=== PATIENT | male | born 1965 | race Caucasian/White ===

== ENCOUNTER 2020-06-01 03:11 | Emergency (ER) | payer MEDICAID ==
[~2020-06-01] VITALS: Ht 182.9 cm; Wt 110.0 kg
[~2020-06-01 03:11] MED LIST: NAPR-56 PO
[2020-06-01] MEDS ORDERED: proparacaine 0.5% ophthalmic drops 15ml EACHEYE ONE (03:55)
--- NOTE | 2020-06-01 04:10 | NUR ---
Dr. Villalobos examining pt's eye
[2020-06-01] MEDS ORDERED: HYDR-3965 PO (04:23)
[2020-06-01] MEDS ORDERED: sod sulfacetamide/prednisoLONE ophth susp 5ml EACHEYE SCH (04:25)
[2020-06-01] MEDS ORDERED: TETanus/Pertussis (Acell)/Diphther VAC/PF (Tdap-Adult) 0.5ml syringe IMVAC ONE (04:25)
[2020-06-01 05:18] VITALS: BP 143/112
== END 2020-06-01 05:22 | disposition home or self-care (01) ==
LOC: ER 03:12
DX: H57.11 Ocular pain, right eye (principal); F15.90 Other stimulant use, unspecified, uncomplicated; Z98.890 Other specified postprocedural states; Z79.899 Other long term (current) drug therapy
CPT/HCPCS: 90471; 90715; 99283

== ENCOUNTER 2020-06-01 14:08 | Emergency (ER) | payer MEDICAID ==
[~2020-06-01] VITALS: Ht 182.9 cm; Wt 106.2 kg
[~2020-06-01 14:08] MED LIST changes: +HYDR-3965 PO
[2020-06-01 14:12] VITALS: BP 170/100
== END 2020-06-01 15:38 | disposition home or self-care (01) ==
LOC: ER 14:08
DX: H10.89 Other conjunctivitis (principal); H57.11 Ocular pain, right eye; F15.90 Other stimulant use, unspecified, uncomplicated; Z98.890 Other specified postprocedural states; Z79.899 Other long term (current) drug therapy
CPT/HCPCS: 99281

== ENCOUNTER 2022-01-15 22:37 | Emergency (ER) | payer MEDICAID ==
[~2022-01-15] VITALS: Ht 182.9 cm; Wt 102.3 kg
[~2022-01-15 22:37] MED LIST changes: -HYDR-3965 PO
[2022-01-15 22:54] VITALS: BP 127/89
[2022-01-15 23:28] LABS: ALANINE AMINOTRANSFERASE 47 U/L (12-78); ALBUMIN 3.2 G/DL (3.4-5.0); ALBUMIN/GLOBULIN RATIO 0.8 (1.1-1.5); ALKALINE PHOSPHATASE 132 IU/L (46-116); ANION GAP 6 (8-16); ASPARTATE AMINO TRANSFERASE 33 U/L (10-37); BILIRUBIN,TOTAL 0.2 MG/DL (0.1-1.0); BLOOD UREA NITROGEN 20 MG/DL (7-18); BUN/CREATININE RATIO 11.8 (5.4-32.0); CALCIUM 8.6 MG/DL (8.5-10.1); CHLORIDE 105 MMOL/L (99-107); CREATININE 1.69 MG/DL (0.60-1.10); GLUCOSE 123 MG/DL (70-104); POTASSIUM 3.8 MMOL/L (3.5-5.1); SODIUM 138 MMOL/L (135-145); TOTAL CARBON DIOXIDE 26.9 MMOL/L (24-32); TOTAL PROTEIN 7.1 G/DL (6.4-8.2); eGFR 42 ML/MIN
[2022-01-15 23:37] LABS: BASOPHILS # (AUTO) 0.1 X10'3 (0-0.2); EOSINOPHILS # (AUTO) 0.2 X10'3 (0-0.9); HEMATOCRIT 42.4 % (42.0-52.0); MEAN CORPUSCULAR HEMOGLOBIN 24.7 PG (27.0-31.0); MONOCYTES # (AUTO) 0.9 X10'3 (0-0.9)
[2022-01-15 23:39] LABS: BASOPHILS % (AUTO) 0.5 % (0-1); EOSINOPHILS % (AUTO) 2.1 % (0-6); HEMOGLOBIN 13.6 g/dl (14.0-17.9); LYMPHOCYTES # (AUTO) 2.7 X10'3 (1.1-4.8); LYMPHOCYTES % (AUTO) 26.7 % (21-51); MEAN CORPUSCULAR HGB CONC 32.2 g/dL (33.0-36.5); MEAN CORPUSCULAR VOLUME 76.7 FL (78-98); MEAN PLATELET VOLUME 8.8 FL (7.4-10.4); MONOCYTES % (AUTO) 8.5 % (2-12); NEUTROPHILS # (AUTO) 6.3 X10'3 (1.8-7.7); NEUTROPHILS % (AUTO) 62.2 % (42-75); PLATELET COUNT 194 X10'3 (140-440); RED BLOOD COUNT 5.53 X10'6 (4.70-6.10); RED CELL DISTRIBUTION WIDTH 15.2 % (11.5-14.5); WHITE BLOOD COUNT 10.2 X10'3 (4.5-11.0)
== END 2022-01-16 03:01 | disposition left against medical advice (07) ==
LOC: ER 22:39
DX: R06.02 Shortness of breath (principal); Z20.822 Contact with and (suspected) exposure to COVID-19; Z53.21 Procedure and treatment not carried out due to patient leaving prior to being seen by health care provider
CPT/HCPCS: 36415; 71045; 80053; 83880; 84484; 85025; 87635; C9803

== ENCOUNTER 2022-01-16 16:49 | Emergency (ER) | payer MEDICAID ==
[~2022-01-16] VITALS: Ht 182.9 cm; Wt 100.0 kg
[2022-01-16 17:10] VITALS: BP 146/100
== END 2022-01-16 22:05 | disposition left against medical advice (07) ==
LOC: ER 16:50
DX: R06.02 Shortness of breath (principal); Z53.21 Procedure and treatment not carried out due to patient leaving prior to being seen by health care provider

== ENCOUNTER 2023-10-29 14:22 | Outpatient (CLI) | payer MEDICAID ==
[~2023-10-29] VITALS: Ht 182.9 cm; Wt 113.4 kg
[2023-10-29] MEDS ORDERED: METO50TA7 PO (15:16)
[2023-10-29] MEDS ORDERED: CHOL100017 PO (15:16)
[2023-10-29] MEDS ORDERED: FURO40TA4 PO (15:16)
[2023-10-29] MEDS ORDERED: ATOR-2 PO (15:16)
[2023-10-29] MEDS ORDERED: EMPA10TA PO (15:16)
[2023-10-29] MEDS ORDERED: SPIR50TA5 PO (15:16)
[2023-10-29] MEDS ORDERED: METF-1203 PO (15:16)
[2023-10-29 15:23] LABS: BASOPHILS % (AUTO) 0.6 % (0-1); EOSINOPHILS # (AUTO) 0.3 X10'3 (0-0.9); EOSINOPHILS % (AUTO) 4.3 % (0-6); HEMATOCRIT 44.4 % (42.0-52.0); HEMOGLOBIN 14.1 g/dl (14.0-17.9); LYMPHOCYTES # (AUTO) 1.9 X10'3 (1.1-4.8); MEAN CORPUSCULAR HEMOGLOBIN 24.7 PG (27.0-31.0); MEAN CORPUSCULAR HGB CONC 31.8 g/dL (33.0-36.5); MEAN CORPUSCULAR VOLUME 77.5 FL (78-98); MONOCYTES # (AUTO) 0.9 X10'3 (0-0.9); MONOCYTES % (AUTO) 12.6 % (2-12); NEUTROPHILS % (AUTO) 55.5 % (42-75); PLATELET COUNT 234 X10'3 (140-440); RED BLOOD COUNT 5.73 X10'6 (4.70-6.10); RED CELL DISTRIBUTION WIDTH 14.7 % (11.5-14.5); WHITE BLOOD COUNT 7.1 X10'3 (4.5-11.0)
[2023-10-29 15:38] LABS: ALANINE AMINOTRANSFERASE 32 U/L (12-78); ALBUMIN 3.7 G/DL (3.4-5.0); ALBUMIN/GLOBULIN RATIO 0.9 (1.1-1.5); ALKALINE PHOSPHATASE 148 IU/L (46-116); ANION GAP 9 (8-16); ASPARTATE AMINO TRANSFERASE 18 U/L (10-37); BILIRUBIN,TOTAL 0.2 MG/DL (0.1-1.0); BLOOD UREA NITROGEN 18 MG/DL (7-18); CALCIUM 9.1 MG/DL (8.5-10.1); CHLORIDE 108 MMOL/L (99-107); CREATININE 1.06 MG/DL (0.60-1.10); GLUCOSE 95 MG/DL (70-104); POTASSIUM 4.1 MMOL/L (3.5-5.1); SODIUM 142 MMOL/L (135-145); TOTAL CARBON DIOXIDE 24.7 MMOL/L (24-32); TOTAL PROTEIN 7.8 G/DL (6.4-8.2); eGFR 72 ML/MIN
[2023-11-05] MEDS ORDERED: albuterol 2.5 MG/3 ML nebule NEB ONE (05:30)
[2023-11-05] MEDS ORDERED: famotidine 20mg tablet PO ONE (05:30)
[2023-11-05] MEDS ORDERED: DOCUMENT DATE & TIME OF BETA-BLOCKER PO ONE (05:30)
[2023-11-05] MEDS ORDERED: ringers solution, lacted 1,000 ML IV SCH (05:30)
== END 2023-10-29 23:59 | disposition home or self-care (01) ==
LOC: LAB 14:22 → EDSTATUS 11-05 10:30
PROVIDERS: ATTEND Orthopaedic Surgery Hand Surgery
DX: Z01.818 Encounter for other preprocedural examination (principal); S62.221A Displaced Rolando's fracture, right hand, initial encounter for closed fracture; I11.0 Hypertensive heart disease with heart failure; I50.9 Heart failure, unspecified; E78.00 Pure hypercholesterolemia, unspecified; E66.9 Obesity, unspecified; J44.9 Chronic obstructive pulmonary disease, unspecified; Z87.891 Personal history of nicotine dependence; Z68.33 Body mass index [BMI] 33.0-33.9, adult; X58.XXXA Exposure to other specified factors, initial encounter; Y93.89 Activity, other specified; Y92.89 Other specified places as the place of occurrence of the external cause; Y99.8 Other external cause status
CPT/HCPCS: 36415; 80053; 85025; J7120

== ENCOUNTER 2024-04-23 13:53 | Outpatient (CLI) | payer MEDICAID ==
[~2024-04-23] VITALS: Ht 182.9 cm; Wt 108.9 kg
[~2024-04-23 13:53] MED LIST changes: +ATOR-2 PO; +CHOL100017 PO; +EMPA10TA PO; +FURO40TA4 PO; +METF-1203 PO; +METO50TA7 PO; -NAPR-56 PO; +SPIR50TA5 PO
[2024-04-23 14:23] VITALS: PULSE 100; RESP 15; O2SAT 93
[2024-04-23 14:34] VITALS: PULSE 99; RESP 16
[2024-04-23] MEDS: albuterol 2.5 MG/3 ML nebule NEB ONE (14:38)
== END 2024-04-23 23:59 | disposition home or self-care (01) ==
LOC: RT 13:53
PROVIDERS: ATTEND Family Medicine
DX: R06.02 Shortness of breath (principal)
CPT/HCPCS: 94060; 94760

== ENCOUNTER 2025-02-03 09:37 | Emergency (ER) | payer MEDICAID ==
[~2025-02-03] VITALS: Ht 182.9 cm; Wt 105.5 kg
[2025-02-03 09:46] VITALS: TEMP 98.6
[2025-02-03] MEDS: LIDOcaine 1% 30ml preserv. free vial SQ STA (09:51)
[2025-02-03] MEDS ORDERED: CEPH-585 PO (09:57)
--- NOTE | 2025-02-03 09:57 | Physician Documentation ---
History of Present Illness ~ Chief Complaint: Laceration Stated Complaint: HAND LACERATION Time Seen by MD: 09:51 Primary Medical Doctor: n/a HPI This is a 59-year-old gentleman who comes in for evaluation of traumatic injuries sustained while at work. He was grinding metal and granular got away from him and he sustained a laceration to the base of his left thumb. Reports an immediate onset sharp nonradiating pain and blood scored in the proximally 4 ft in the distance. He applied pressure dressing and came to the emergency department. The palliating or aggravating factors. Did not attempt to treat his symptoms. He has absolutely no idea my lost his last tetanus. Denies any other injury. Denies concern for tobacco, alcohol or illicit substances use Tetanus Within 5 Years: No Medication Reconciliation Allergies: Coded Allergies: No Known Allergies (Unverified , 06/13/13) Scheduled Atorvastatin Calcium (Atorvastatin Calcium), 1 TAB PO DAILY, (Reported) Cephalexin*Monohydrate* (Keflex*), 1 CAP PO Q6H Cholecalciferol (Vitamin D3) (Vitamin D3), 1 TAB PO DAILY, (Reported) Empagliflozin (Jardiance), 1 TAB PO DAILY, (Reported) Furosemide (Furosemide), 1 TAB PO DAILY, (Reported) Metformin HCl (Metformin HCl), 1 TAB PO BID, (Reported) Metoprolol Succinate* (Toprol Xl*), 1 TAB PO DAILY, (Reported) Spironolactone (Spironolactone), 1 TAB PO DAILY, (Reported) Past Medical History Past Medical History: No Pertinent History Past Surgical History: abdominal surgery Alcohol Use: None Drug Use: methamphetamine Review of Systems ROS 10 point review of systems was performed and unless noted above in HPI is negative for acute process/complaint. Physical Exam Vital Signs: Temperature: 98.6, Heart Rate: 88, Respiratory Rate: 20, BP: 181/103, Pulse Oximetry: 96, Weight: 105.450 Oxygen Flow Rate: 0 Physical Exam Physical examination: GENERAL: Awake, alert, oriented, GCS 15, no apparent distress, non-toxic appearing, answers questions, follows commands appropriately. HEENT: Atraumatic, normocephalic, pupils equal, extraocular muscles intact Active gross movements, sclerae anicteric, mucus membranes moist, no stridor. NECK: Midline, no JVD CARDIOVASCULAR: Good skin perfusion without evidence of pallor, mottling. PULMONARY: Nonlabored, symmetric chest rise, no audible wheezing, no accessory muscle use, no respiratory distress, speaking in full sentences. GASTROINTESTINAL: Not distended. NEUROLOGIC: Lucid with normal mental status. Normal facial symmetry. Moves all extremities symmetrically and with purpose. No truncal ataxia. Speech is fluid without evidence of dysarthria or aphasia, no focal deficits appreciated. EXTREMITIES: Acute deformities Skin: warm, dry PSYCHIATRIC: Anxious affect, normal insight, normal concentration. Focused exam: [2 cm laceration at the base of the 1st digit of the left hand on the dorsum. Tendon appears to be intact, he is able to extend his thumb with a full strength. Full range of motion of the thumb.] Procedures Laceration/Wound Repair Laceration : Anesthesia: Lidocaine Prep: irrigated by nurse Undermining: none Foreign Body: not identified Repaired: skin Wound Repaired With: sutures Suture Size/Type: 4-0, ethilon Number of Superficial Sutures: 3 Dressing Applied: none Splint Applied?: No Sling Applied?: No Tolerated Procedure Well?: yes, no complications Progress Results/Orders Results/Orders Orders - VIDA BELTRE DO Laceration/I&D Tray Set Up (02/03/25 ) Repair Laceration 2.5cm < Pst (02/03/25 ) Completed Orders - VIDA BELTRE DO Tetanus/Pertuss/Diph Acell/Pf (Boostrix (02/03/25 09:55) Ceftriaxone 500 Im W/Lidocaine (Rocephin (02/03/25 09:55) Lidocaine 1% 30ml Vial (Xylocaine 1% Via (02/03/25 09:51) Vital Signs 02/03/25 09:46 Temp 98.6 Pulse 88 Resp 20 B/P (MAP) 181/103 Pulse Ox 96 O2 Flow Rate 0 Medical Decision Making Findings Facility Status: ED Holds, [facility] process The plan was discussed with the patient, who demonstrates clear understanding of the plan and is in agreement with the plan unless otherwise noted in the chart. All questions have been answered, all concerns were addressed unless otherwise documented. I was available throughout their ED stay for frequent reassessment and que stions. Differential Diagnoses (considered and possible or likely): [Thumb laceration, acute traumatic pain, encounter for tetanus inoculation] ??Differential Diagnoses (considered and unlikely, not requiring evaluation currently): [No evidence of neurovascular injury. Tendon appears to be intact] MDM Data Please see [facility] for the following: Independent Historians and external Records Review. Historian: [Patient] Independent Historians: ?[None] Medication Management: [Reviewed medication list] Social History and determinants: [Reviewed] Please see the body of the note for the following: Any independent interpretations of ECG, imaging studies. All vitals signs/haemodynamics, ordered tests were independently reviewed and interpreted by myself. Nursing triage complaint and vitals reviewed, additional nursing notes were reviewed as available and I agree unless otherwise noted or documented in contradiction in the chart Vital Signs: Independently reviewed Labs: Independently interpreted Imaging: Independently interpreted Old Medical Records: Independently reviewed, see [facility] for relevant summary and information Pulse Oximetry: [99%] interpreted as [normal on room air] by me Additionally notably showing: [Hemodynamically stable] Tests considered but not ordered include: [Hematologic workup and imaging has been considered but does not appear to be necessary given clinical nature of diagnosis] Social Determinants of Health Impact: Patient was evaluated in [facility] [place] to healthcare due to below par ratio of patient to medical providers. [] Comorbid Conditions Impacting Present Evaluation and Care/Treatment: [None] Management Discussions with other Healthcare Providers: [None] Treatment and Disposition Medication Management (Given or considered): []. See EMR for details Consideration for Hospitalization/Escalation/Deescalation of Care: Admission for observation has been considered, [however the patient is able to tolerate p.o., their symptoms are controlled, they are able to rely on oral medications, and their chief complaint/diagnosis can be managed on outpatient basis.] ?ED Course:?[Laceration was repaired. Patient tolerated procedure well.] ?Shared decision making:?[Patient is hemodynamically stable for discharge home with follow with their primary care provider. [ ] Specific and cautious return precautions provided and discussed with full understanding. Any incidental findings were also discussed and follow up recommendations given. [] All questions answered. Patient/family were able to verbalize back return precautions. Patient/family agree to plan. Copies of imaging and laboratory studies were provided.] Code status:?FULL Please see the full Electronic Medical Record for full details of nursing documentation, medications list, other records of complete past medical history and conditions, vital signs, laboratory studies, and any radiologic study interpretations by radiologists. Portions of this note were completed using Exam18 dictation software and as a result there may exist minor errors in spelling. I have reviewed elements of past family and social history and agree as included in note. Departure Disposition: 01 HOME / SELF CARE / HOMELESS Impression: Primary Impression: Thumb laceration Additional Impressions: Acute traumatic pain Tetanus toxoid inoculation Discharge Instructions: Laceration Care, Adult, [id number] Referrals: NO PRIMARY CARE PROVIDER (PCP) Prescriptions Cephalexin*Monohydrate* (Keflex*) 500 Mg Capsule 1 CAP PO Q6H for 10 Days, #40 CAP Prov: VIDA BELTRE DO 02/03/25 Education Educated: Patient Educated regarding: diagnosis, treatment, prognosis, need for follow up Signature Scribe Signature: No scribe Attestation: This note accurately reflects clinical decisions, work performed by myself, DO ALEXSANDER Mccormick NICHOLAS M DO Feb 03, 2025 09:57
[2025-02-03] MEDS: CefTRIAXone 500MG IM Kit w/LIDOcaine IM ONE ×2 (11:00→11:01)
[2025-02-03] MEDS: TETanus/Pertussis (Acell)/Diphther VAC/PF (Tdap-Adult) 0.5ml syringe IMVAC ONE (11:01)
[2025-02-03 11:10] VITALS: BP 134/85; PULSE 81; RESP 16; O2SAT 98
== END 2025-02-03 11:15 | disposition home or self-care (01) ==
LOC: ER 09:38
DX: S61.012A Laceration without foreign body of left thumb without damage to nail, initial encounter (principal); G89.11 Acute pain due to trauma; F15.90 Other stimulant use, unspecified, uncomplicated; Z79.899 Other long term (current) drug therapy; Z79.84 Long term (current) use of oral hypoglycemic drugs; W31.89XA Contact with other specified machinery, initial encounter; Y93.89 Activity, other specified; Y92.89 Other specified places as the place of occurrence of the external cause; Y99.8 Other external cause status
CPT/HCPCS: 12001; 90471; 90715; 96372; 99284; J0696; J7030; A6449

== ENCOUNTER 2025-04-14 06:47 | Emergency (ER) | payer MEDICAID ==
[~2025-04-14] VITALS: Ht 182.9 cm; Wt 106.7 kg
[2025-04-14 06:52] VITALS: BP 167/94; PULSE 100; TEMP 97.9; O2SAT 98
--- NOTE | 2025-04-14 07:13 | Physician Documentation ---
History of Present Illness General Chief Complaint: Back Pain Stated Complaint: BACK PAIN Time Seen by MD: 07:12 Primary Medical Doctor: n/a History of Present Illness Initial Comments Patient is a 59-year-old male with a history of type 2 diabetes who presents to the emergency room with left lower back pain that shoots down his left leg. The patient states he has had the pain for a probably over two weeks. Patient states it is painful when he ambulates. Patient states he has no weakness. Patient denies any bowel or bladder difficulties. Patient denies any trauma. Patient's symptoms are moderate and persistent. He denies any fevers or chills. Medication Reconciliation Allergies: Coded Allergies: No Known Allergies (Unverified , 04/14/25) Scheduled Atorvastatin Calcium (Atorvastatin Calcium), 1 TAB PO DAILY, (Reported) Cholecalciferol (Vitamin D3) (Vitamin D3), 1 TAB PO DAILY, (Reported) Empagliflozin (Jardiance), 1 TAB PO DAILY, (Reported) Furosemide (Furosemide), 1 TAB PO DAILY, (Reported) Metformin HCl (Metformin HCl), 1 TAB PO BID, (Reported) Metoprolol Succinate* (Toprol Xl*), 1 TAB PO DAILY, (Reported) Spironolactone (Spironolactone), 1 TAB PO DAILY, (Reported) Scheduled PRN Cyclobenzaprine* (Cyclobenzaprine*), 1 TAB PO Q8H PRN for pain Past Medical History Past Medical History: No Pertinent History Past Surgical History: abdominal surgery Smoking: Cigarettes Alcohol Use: None Drug Use: methamphetamine Review of Systems All Other Systems at this time: Reviewed and Negative Physical Exam Physical Exam Vital Signs: RN Vital Signs have been reviewed: Yes, Temperature: 97.9, Source: Temporal, Heart Rate: 100, Respiratory Rate: 18, BP: 167/94, Pulse Oximetry: 98, Weight: 106.700 Oxygen Flow Rate: 0 Physical Exam VITALS: Reviewed and as above. GENERAL: Alert, no apparent distress. HEENT: Normocephalic, atraumatic, PERRL, EOMI, dry mucosa, no erythema GI: Soft, non-tender, bowels sounds present, no rebound, guarding, or rigidity BACK: No CVA tenderness, or swelling the patient has left paraspinal tenderness L5-S1 region MUSCULOSKELETAL: No deformities, no edema SKIN: Warm and dry, no rash NEURO: Oriented x4, No motor or sensory deficit PSYCH: Normal mood and affect, no agitation Progress Results/Orders Results/Orders Orders - OHLMICHAEL CHRISTIANSON MD Lumbar Spine Limited (04/14/25 07:25) Completed Orders - MICHAEL REYNOSO MD Lumbar Spine Limited (04/14/25 07:25) Ketorolac Trometh 15mg/Ml Vial (Toradol (04/14/25 07:25) Orphenadrine Citrate Inj. (Norflex Inj.) (04/14/25 07:25) Vital Signs 04/14/25 04/14/25 06:52 07:42 Temp 97.9 Pulse 100 Resp 18 18 B/P (MAP) 167/94 Pulse Ox 98 O2 Flow Rate 0 EKG/XRAY/CT/US/VASC/MRI Bone/Soft Tissue X-Ray (Ext.) : Additional Comment INDICATION: back pain COMPARISON: None TECHNIQUE: 3 views of the lumbar spine were obtained. FINDINGS: The lumbar vertebral alignment is normal. Multilevel degenerative changes most severe at L4-L5 through L5-S1 causing moderate to severe neural foraminal spinal canal stenosis. No acute fracture, vertebral compression deformity or aggressive osseous lesions. The paravertebral soft tissues are grossly unremarkable. IMPRESSION: No acute fracture or subluxation. Reviewed by myself. Medical Decision Making Additional information obtaine: old records Findings The patient has reproducible back pain, the patient has no high-risk features he has a bowel or bladder incontinence he has no leg weakness the patient was treated with a shot of Toradol as well as orphenadrine has a muscle relaxant with improvement of her symptoms the patient will be discharged. The patient's prior hospitalizations has been reviewed. The patient's pulse oximetry was interpreted as normal and adequate. Differential Diagnosis Back pain, Departure Time of Disposition: 08:08 Disposition: 01 HOME / SELF CARE / HOMELESS Impression: Primary Impression: Sciatica Qualified Codes: M54.32 - Sciatica, left side Discharge Instructions: Sciatica Additional Instructions: Take medication as prescribed. Do not take while driving. Follow up with your regular doctor. Return to the ER for any other concerns. Prescriptions Cyclobenzaprine* (Cyclobenzaprine*) 10 Mg Tablet 1 TAB PO Q8H PRN for pain for 10 Days, #30 TAB 0 Refills Prov: MICHAEL REYNOSO MD 04/14/25 Signature Scribe Signature: Scribed for Michael Reynoso MD by Miguel Lema . 04/14/25 08:09 Attestation: The note accurately reflects work and decisions made by me.Michael Reynoso MD 04/15/25 16:40 MICHAEL REYNOSO MD Apr 14, 2025 07:13 MIGUEL CANDELARIO Apr 14, 2025 08:09
[2025-04-14 07:42] VITALS: RESP 18
[2025-04-14] MEDS: ketorolac trometh 15mg/ml vial 15 MG/ML ML IM ONE (07:42)
[2025-04-14] MEDS: orphenadrine citrate 60mg/2ml inj. IM ONE (07:42)
[2025-04-14] MEDS ORDERED: CYCL-1 PO (07:50)
--- NOTE | 2025-04-14 08:05 | RADIOLOGY REPORT ---
INDICATION: back pain COMPARISON: None TECHNIQUE: 3 views of the lumbar spine were obtained. FINDINGS: The lumbar vertebral alignment is normal. Multilevel degenerative changes most severe at L4-L5 through L5-S1 causing moderate to severe neural foraminal spinal canal stenosis. No acute fracture, vertebral compression deformity or aggressive osseous lesions. The paravertebral soft tissues are grossly unremarkable. IMPRESSION: No acute fracture or subluxation.
== END 2025-04-14 08:15 | disposition home or self-care (01) ==
LOC: ER 06:48
DX: M54.42 Lumbago with sciatica, left side (principal); E11.9 Type 2 diabetes mellitus without complications; F17.210 Nicotine dependence, cigarettes, uncomplicated; F15.90 Other stimulant use, unspecified, uncomplicated; Z79.899 Other long term (current) drug therapy
CPT/HCPCS: 72100; 96372; 99284; J1885; J2360

== ENCOUNTER 2025-04-23 11:53 | Emergency (ER) | payer MEDICAID ==
[~2025-04-23] VITALS: Ht 182.9 cm; Wt 109.1 kg
[~2025-04-23 11:53] MED LIST changes: +CYCL-1 PO
[2025-04-23 11:59] VITALS: TEMP 97.9
[2025-04-23 12:41] LABS: MEAN PLATELET VOLUME 8.4 FL (7.4-10.4); RED CELL DISTRIBUTION WIDTH 14.7 % (11.5-14.5)
[2025-04-23 12:51] LABS: CREATININE 1.37 MG/DL (0.60-1.10); TOTAL CARBON DIOXIDE 24.3 MMOL/L (24-32); eCRCL 64 ML/MIN; eGFR 53 ML/MIN
[2025-04-23 13:36] LABS: LEUKOCYTE ESTERASE ,URINE NEGATIVE (Neg); NITRITES, URINE NEGATIVE (Neg); OCCULT BLOOD,URINE NEGATIVE (Neg)
[2025-04-23 13:48] LABS: UA COLLECTION TYPE CLN CATCH MIDSTREAM
[2025-04-23 13:52] LABS: SQUAMOUS EPITHELIAL CELL,UR FEW /LPF (FEW)
[2025-04-23] MEDS ORDERED: METH4TAB81 PO (14:25)
--- NOTE | 2025-04-23 14:25 | Physician Documentation ---
History of Present Illness ~ Chief Complaint: Flank Pain Stated Complaint: LEFT SIDE BACK PAIN Time Seen by MD: 13:29 Primary Medical Doctor: n/a HPI 59-year-old male presenting with left-sided back pain He tells me that he has had ongoing pain in his left lower back. It does radiate down the back of his buttocks and thigh. Last night he had 1 episode where his calf also felt to have normal though this has resolved. He states the pain has been constant for several weeks now. He was seen here in the emergency department recently and given medications, but states they are not really helping. He has been doing a lot of positional exercises and stretches which do help a little bit. However, he has significant pain with walking and has become very limited in his activities. He denies any other new or different symptoms. No bowel or bladder changes. No numbness to his groin. No fevers. No new injuries. Per chart review, he has been prescribed a muscle relaxant. Medication Reconciliation Allergies: Coded Allergies: No Known Allergies (Unverified , 04/23/25) Scheduled Atorvastatin Calcium (Atorvastatin Calcium), 1 TAB PO DAILY, (Reported) Cholecalciferol (Vitamin D3) (Vitamin D3), 1 TAB PO DAILY, (Reported) Empagliflozin (Jardiance), 1 TAB PO DAILY, (Reported) Furosemide (Furosemide), 1 TAB PO DAILY, (Reported) Metformin HCl (Metformin HCl), 1 TAB PO BID, (Reported) Methylprednisolone (Medrol Dosepak), 0 PO UD Metoprolol Succinate* (Toprol Xl*), 1 TAB PO DAILY, (Reported) Spironolactone (Spironolactone), 1 TAB PO DAILY, (Reported) Scheduled PRN Cyclobenzaprine* (Cyclobenzaprine*), 1 TAB PO Q8H PRN for pain Past Medical History Past Medical History: No Pertinent History Past Surgical History: abdominal surgery Alcohol Use: None Drug Use: methamphetamine Review of Systems Constitutional: Denies: fever Musculoskeletal: Reports: back pain Physical Exam Physical Exam Vital Signs: Temperature: 97.9, Source: Oral, Heart Rate: 82, Respiratory Rate: 16, BP: 117/68, Pulse Oximetry: 98, Weight: 109.100 Oxygen Flow Rate: 0 Physical Exam General: This is a pleasant middle-aged man, not in acute distress HEENT: Atraumatic, oropharynx is moist Heart: Regular rate and rhythm, normal-appearing peripheral perfusion Lungs: normal work of breathing, normal oxygen saturation on room air Back: The patient has no significant reproducible tenderness on palpation of the midline spine. He does have some mild generalized tenderness on palpation of the muscles around the left SI joint. Extremities: Warm and well-perfused Neuro: Alert and oriented, normal strength and sensation to both lower extremities. He is able to walk without significant difficulty Psychiatric: Calm and cooperative with exam Progress Results/Orders Results/Orders Completed Orders - JOE ALBA MD Cbc/Diff (04/23/25 12:03) BMP (04/23/25 12:03) Lipase (04/23/25 12:03) CMP (04/23/25 12:03) Ua W/Microscopic, Cult If Ind (04/23/25 12:03) Morphine 4mg/Ml Inj. (Morphine Inj.) (04/23/25 14:35) Medications Received in ER Medications (Trade) Dose Ordered Sig/[place] Route PRN Reason Start Time Stop Time Status Last Admin Dose Admin (morphine inj.) 4 mg ONCE ONCE IM 04/23/25 14:35 04/23/25 14:36 DC 04/23/25 15:00 4 MG Vital Signs 04/23/25 04/23/25 04/23/25 04/23/25 11:59 14:42 15:00 15:00 Temp 97.9 Pulse 82 79 Resp 16 16 16 17 B/P (MAP) 117/68 116/75 (89) Pulse Ox 98 98 O2 Flow Rate 0 Laboratory Tests Test 04/23/25 12:03 04/23/25 12:22 Urine Specimen Description Cln catch midstream Urine Color Straw Urine Clarity Clear Urine pH 5.5 Urine Specific [place] 1.015 Urine Protein Negative Urine Glucose (UA) >=1000 H Urine Ketones Negative Urine Occult Blood Negative Urine Nitrite Negative Urine Bilirubin Negative Urine Urobilinogen 0.2 Urine Leukocyte Esterase Negative Urine RBC 0-2 Urine WBC None seen Urine Squamous Epithelial Cells Few Urine Bacteria None seen Urine Culture Indicated Not ind Volume Urine Centrifuged 10 ml Urine Comment White Blood Count 6.4 Red Blood Count 5.77 Hemoglobin 14.7 Hematocrit 44.7 Mean Corpuscular Volume 77.4 L Mean Corpuscular Hemoglobin 25.5 L Mean Corpuscular Hemoglobin Concent 33.0 Red Cell Distribution Width 14.7 H Platelet Count 206 Mean Platelet Volume 8.4 Neutrophils (%) (Auto) 51.2 Lymphocytes (%) (Auto) 31.9 Monocytes (%) (Auto) 12.0 Eosinophils (%) (Auto) 4.3 Basophils (%) (Auto) 0.6 Neutrophils # (Auto) 3.3 Lymphocytes # (Auto) 2.1 Monocytes # (Auto) 0.8 Eosinophils # (Auto) 0.3 Basophils # (Auto) 0.0 CBC Comment Sodium Level 138 Potassium Level 4.1 Chloride Level 102 Carbon Dioxide Level 24.3 Anion Gap 12 Blood Urea Nitrogen 25 H Creatinine 1.37 H Estimated GFR/1.73 m2 53 BUN/Creatinine Ratio 18.2 Glucose Level 120 H Calcium Level 8.9 Total Bilirubin 0.4 Aspartate Amino Transf (AST/SGOT) 29 Alanine Aminotransferase (ALT/SGPT) 39 Alkaline Phosphatase 161 H Total Protein 8.0 Albumin 3.9 Globulin 4.1 Albumin/Globulin Ratio 1.0 L Lipase 31 Chemistry Comments Medical Decision Making Additional information obtaine: old records Findings Reviewed previous ER visit for similar symptoms Differential Dx:Considerations: Fracture, Musculoskeletal pain, Urolithiasis Differential Diagnosis The patient presents with low back pain radiating down his leg. Per his history and exam this appears consistent with sciatica. He has been seen previously for similar thing, and already prescribed a muscle relaxant. Labs ordered from triage are unremarkable. After shared decision-making conversation he would like to proceed with a course of steroids. We discussed the risks of high blood sugars related to this. He also was given a single dose of IM morphine for relief for today, but we discussed that opiates are not a good long-term treatme nt for this. He will follow up with his primary care doctor to discuss further treatments including physical therapy, an MRI, and referral to his pain specialist for a back injection. Departure Time of Disposition: 14:24 Disposition: 01 HOME / SELF CARE / HOMELESS Impression: Primary Impression: Sciatica Condition: Stable Discharge Instructions: Sciatica, Sciatica Rehab-SportsMed Referrals: NO PRIMARY CARE PROVIDER (PCP) Prescriptions Methylprednisolone (Medrol Dosepak) 4 Mg Tab.ds.pk 0 PO UD, #21 TAB 0 Refills take 6 Pills Day 1, 5 Pills Day 2, 4 Pills Day 3, 3 Pills Day 4, 2 Pills Day 5 and 1 pill Day 6 Prov: JOE ALBA MD 04/23/25 Education Educated regarding: diagnosis, need for follow up Signature Scribe Signature: na Attestation: JOE Aggarwal MD Apr 23, 2025 14:25
[2025-04-23 15:00] VITALS: BP 116/75; PULSE 79; RESP 17; O2SAT 98
[2025-04-23] MEDS: morphine 4 MG/ML inj SYRINge IM ONE (15:00)
== END 2025-04-23 15:01 | disposition home or self-care (01) ==
LOC: ER 11:55
DX: M54.32 Sciatica, left side (principal)
CPT/HCPCS: 36415; 80053; 81001; 83690; 85025; 96372; 99283; J2270